=== PATIENT | female | born 1995 | race African-American/Black ===

== ENCOUNTER 2020-12-08 08:55 | Inpatient (IN) | payer OTHER ==
[2020-12-08] MEDS ORDERED: BUTORPHANOL TARTRATE 1 MG/ML VIAL IVPB PRN ×2 (10:10)
[2020-12-08] MEDS ORDERED: PROMETHAZINE HCL 25 MG/1 ML VIAL IVPB ONE (10:10)
[2020-12-08] MEDS ORDERED: CITRIC ACID/SODIUM CITRATE 30 ML UNIT-DOSE CUP PO ONE (10:10)
[2020-12-08] MEDS ORDERED: ELECTROLYTE-148 SOLN 1,000 ML IV SCH (10:15)
[2020-12-08 10:35] VITALS: BMI 26.8
[2020-12-08] MEDS ORDERED: DINOPROSTONE 10 MG VAGINAL SUPPOSITORY VG ONE (11:00)
[2020-12-08 11:39] LABS: BASO % 0.2 % (0-2.0); EOS % 0.4 % (0-4.5); HEMATOCRIT 36.3 % (32.4-45.2); HEMOGLOBIN 12.6 GM/dL (10.7-15.3); LYMPH % 21.6 % (8-40); MCH 29.4 pg (25.7-33.7); MCHC 34.6 g/dl (32.0-36.0); MEAN PLT VOLUME 9.8 fl (7.5-11.1); MONO % 9.2 % (3.8-10.2); NEUT % 68.6 % (42.8-82.8); PLATELET COUNT 204 10^3/uL (134-434); RBC 4.27 M/mm3 (3.60-5.2); RDW 14.5 % (11.6-15.6); WHITE BLOOD COUNT 10.5 K/mm3 (4.0-10.0)
[2020-12-08 11:45] LABS: INR 0.8 (0.83-1.09); PROTHROMBIN TIME (PATIENT) 9.8 SEC (9.7-13.0)
[2020-12-08 11:47] LABS: ACTIVATED PTT 24.6 SECONDS (25.2-36.5)
[2020-12-08 11:59] LABS: CALCIUM 9.4 mg/dL (8.5-10.1)
[2020-12-08 12:00] LABS: BLOOD UREA NITROGEN 8.4 mg/dL (7-18)
[2020-12-08 12:03] LABS: CREATININE 0.6 mg/dL (0.55-1.3)
[2020-12-08 12:52] LABS: URINE BARBITURATES NEGATIVE (NEGATIVE)
[2020-12-08 12:53] LABS: COCAINE, UR NEGATIVE (NEGATIVE); METHADONE, UR NEGATIVE (NEGATIVE); OPIATES, URI NEGATIVE (NEGATIVE); PHENCYCLIDINE,URINE NEGATIVE (NEGATIVE); URINE AMPHETAMINES NEGATIVE (NEGATIVE); URINE BENZODIAZEPINES NEGATIVE (NEGATIVE)
[2020-12-08] MEDS ORDERED: AMPICILLIN SODIUM 2 GM VIAL ONE (13:30)
[2020-12-08] MEDS ORDERED: AMPICILLIN - 2 GM in SODIUM CHLORIDE 100 ML IVPB ONE (13:30)
[2020-12-08] MEDS ORDERED: PROMETHAZINE HCL 25 MG/1 ML VIAL ONE (14:30)
[2020-12-08] MEDS ORDERED: BUTORPHANOL TARTRATE 2 MG/ML VIAL ONE (14:30)
[2020-12-08] MEDS ORDERED: AMPICILLIN SODIUM 1 GM VIAL ONE ×2 (17:00→20:45)
[2020-12-08] MEDS: AMPICILLIN - 1 GM in SODIUM CHLORIDE 100 ML IVPB SCH ×2 (17:30→21:51)
[2020-12-08] MEDS ORDERED: BUTORPHANOL TARTRATE 1 MG/ML VIAL ONE (20:40)
[2020-12-08] MEDS ORDERED: OXYTOCIN 30 UNITS in 0.9% NS 30 UNIT/500 ML INFUS.BAG IVPB SCH (21:15)
[2020-12-08] MEDS ORDERED: OXYTOCIN 30 UNITS in 0.9% NS 30 UNIT/500 ML INFUS.BAG IVPB ONE (21:22)
[2020-12-08] MEDS ORDERED: PCA PUMP NR ONE (22:56)
[2020-12-08] MEDS ORDERED: FENTANYL/BUPIVACAINE/NS/PF - PCEA - 50 ML DISP.SYRIN EP ONE (22:57)
[2020-12-08] MEDS ORDERED: BUPIVACAINE HCL/PF 0.25% (2.5MG/ML) 10 ML VIAL ONE (23:01)
[2020-12-08] MEDS ORDERED: NALOXONE HCL 0.4 MG/ML VIAL IVPUSH PRN (23:25)
[2020-12-08] MEDS ORDERED: FENTANYL/BUPIVACAINE/NS/PF - PCEA - 50 ML DISP.SYRIN EP SCH (23:30)
[2020-12-08] MEDS ORDERED: LIDOCAINE HCL 1% PRESERVATIVE FREE - 30ML VIAL ONE (23:45)
[2020-12-08] MEDS ORDERED: OXYTOCIN 20 UNITS in 0.9% NS 20 UNIT/1,000 ML INFUS.BAG IV ONE (23:46)
[2020-12-09] MEDS: AMPICILLIN - 1 GM in SODIUM CHLORIDE 100 ML IVPB SCH (01:48)
[2020-12-09] MEDS ORDERED: AMPICILLIN SODIUM 1 GM VIAL ONE (01:50)
[2020-12-09] MEDS ORDERED: PCA PUMP NR ONE (01:51)
[2020-12-09] MEDS ORDERED: METHYLERGONOVINE MALEATE 0.2 MG/1 ML AMP IM PRN (02:10)
[2020-12-09] MEDS ORDERED: BISACODYL 10 MG SUPP.RECT RC PRN (02:10)
[2020-12-09] MEDS ORDERED: WITCH HAZEL 50% (TUCKS) 40 PAD/JAR PAD TP PRN (02:10)
[2020-12-09] MEDS ORDERED: BENZOCAINE 20% 57 GM BOTTLE TP PRN (02:10)
[2020-12-09] MEDS ORDERED: BENZOCAINE 28 GM HEMORRHOIDAL OINTMENT TP PRN (02:10)
[2020-12-09] MEDS ORDERED: OXYTOCIN 20 UNITS in 0.9% NS 20 UNIT/1,000 ML INFUS.BAG IV SCH (02:15)
[2020-12-09 03:02] LABS: CORD BASE EXCESS -1.8 mmol/L (0-2); CORD HCO3 24.7 mmHg (20-29); CORD PCO2 48.3 mmHg (30-78); CORD pH 7.327 (7.14-7.44)
[2020-12-09] MEDS: IBUPROFEN 600 MG TABLET (FP) PO PRN (08:47)
[2020-12-09] MEDS: FERROUS SO4 325 MG TABLET (FP) PO SCH ×3 (08:51→17:51)
[2020-12-09] MEDS: PRENATAL VITAMINS W/ FOLIC ACID TABLET (FP) PO SCH (09:40)
[2020-12-10 07:15] LABS: BASO % 0.3 % (0-2.0); EOS % 0.7 % (0-4.5); HEMATOCRIT 34.4 % (32.4-45.2); HEMOGLOBIN 11.6 GM/dL (10.7-15.3); LYMPH % 23.6 % (8-40); MCH 29.1 pg (25.7-33.7); MCHC 33.6 g/dl (32.0-36.0); MEAN CELL VOLUME 86.7 fl (80-96); MEAN PLT VOLUME 9.4 fl (7.5-11.1); MONO % 7.6 % (3.8-10.2); NEUT % 67.8 % (42.8-82.8); PLATELET COUNT 170 10^3/uL (134-434); RBC 3.97 M/mm3 (3.60-5.2); RDW 14.4 % (11.6-15.6); WHITE BLOOD COUNT 12.9 K/mm3 (4.0-10.0)
[2020-12-10] MEDS: FERROUS SO4 325 MG TABLET (FP) PO SCH ×3 (08:34→17:09)
[2020-12-10] MEDS: PRENATAL VITAMINS W/ FOLIC ACID TABLET (FP) PO SCH (09:33)
[2020-12-10] MEDS: IBUPROFEN 600 MG TABLET (FP) PO PRN (09:33)
[2020-12-10] MEDS: ACETAMINOPHEN 325 MG TABLET (FP) PO PRN (20:49)
[2020-12-10] MEDS ORDERED: SENNOSIDES/DOCUSATE COMBO (SENNA PLUS) TABLET (UD) PO PRN (22:00)
[2020-12-11] MEDS: FERROUS SO4 325 MG TABLET (FP) PO SCH (08:53)
[2020-12-11] MEDS: IBUPROFEN 600 MG TABLET (FP) PO PRN (08:54)
[2020-12-11 08:59] VITALS: BP 122/85; PULSE 85; TEMP 98.4
[2020-12-11] MEDS: PRENATAL VITAMINS W/ FOLIC ACID TABLET (FP) PO SCH (09:00)
[2020-12-11] MEDS: ACETAMINOPHEN 325 MG TABLET (FP) PO PRN (10:26)
== END 2020-12-11 15:00 | disposition home or self-care (01) | DRG 560 ==
LOC: JDEL 08:55 → JLDR 10:00 → J3W 12-09 04:38
PROVIDERS: ADMIT Obstetrics & Gynecology; ATTEND Obstetrics & Gynecology
PROC: 3E0P7VZ Introduction of Hormone into Female Reproductive, Via Natural or Artificial Opening (ICD-10-PCS; principal; 2020-12-08)
PROC: 3E033VJ Introduction of Other Hormone into Peripheral Vein, Percutaneous Approach (ICD-10-PCS; 2020-12-08)
PROC: 10E0XZZ Delivery of Products of Conception, External Approach (ICD-10-PCS; 2020-12-09)
DX: O42.02 Full-term premature rupture of membranes, onset of labor within 24 hours of rupture (principal); O99.824 Streptococcus B carrier state complicating childbirth; O70.0 First degree perineal laceration during delivery; Z3A.39 39 weeks gestation of pregnancy; Z37.0 Single live birth
CPT/HCPCS: 36415; 36600; 59025; 59409; 80048; 80307; 82803; 85025; 85610; 85730; 86780; 86850; 86900; 86901; C9803; U0003; U0005

== ENCOUNTER 2021-02-05 17:57 | Emergency (ER) | payer OTHER ==
[2021-02-05 18:05] VITALS: BP 112/73; PULSE 78; TEMP 97; BMI 26.4
[2021-02-05] MEDS ORDERED: ACETAMINOPHEN 1000 MG/100 ML VIAL IVPB ONE (18:22)
[2021-02-05] MEDS ORDERED: ACETAMINOPHEN INJECTION 100 ML IVPB ONE (18:26)
[2021-02-05 19:10] LABS: BASO % 0.9 % (0-2.0); EOS % 1.3 % (0-4.5); HEMATOCRIT 39.7 % (32.4-45.2); HEMOGLOBIN 13.4 GM/dL (10.7-15.3); MCH 28.4 pg (25.7-33.7); MCHC 33.8 g/dl (32.0-36.0); MEAN CELL VOLUME 84.1 fl (80-96); MEAN PLT VOLUME 8.4 fl (7.5-11.1); MONO % 7.2 % (3.8-10.2); NEUT % 56.6 % (42.8-82.8); PLATELET COUNT 308 10^3/uL (134-434); RBC 4.72 M/mm3 (3.60-5.2); RDW 13.5 % (11.6-15.6); WHITE BLOOD COUNT 8.5 K/mm3 (4.0-10.0)
[2021-02-05 19:12] LABS: URINE APPEARANCE CLEAR; URINE BILIRUBIN NEGATIVE (NEGATIVE); URINE COLOR YELLOW; URINE GLUCOSE (UA) NEGATIVE (NEGATIVE); URINE KETONE NEGATIVE (NEGATIVE); URINE LEUK ESTERASE NEGATIVE (NEGATIVE); URINE NITRITE NEGATIVE (NEGATIVE); URINE PROTEIN NEGATIVE (NEGATIVE); URINE UROBILINOGEN 0.2 mg/dL (0.2-1.0)
[2021-02-05 19:31] LABS: CHLORIDE 103 mmol/L (98-107); SODIUM 137 mmol/L (136-145)
[2021-02-05 19:36] LABS: ALBUMIN 4.2 g/dl (3.4-5.0); ANION GAP 6 MMOL/L (8-16); BLOOD UREA NITROGEN 16.9 mg/dL (7-18); CALCIUM 9.8 mg/dL (8.5-10.1); CO2 28 mmol/L (21-32); GLUCOSE,RANDOM 95 mg/dL (74-106)
[2021-02-05 19:37] LABS: LIPASE 108 U/L (73-393)
[2021-02-05 19:39] LABS: CREATININE 0.8 mg/dL (0.55-1.3); SGOT/AST 16 U/L (15-37); SGPT/ALT 17 U/L (13-61)
[2021-02-05 19:41] LABS: BILIRUBIN,TOTAL 0.3 mg/dL (0.2-1); TOT PROT 8.2 g/dl (6.4-8.2)
[2021-02-05 19:42] LABS: ALK PHOS 111 U/L (45-117)
== END 2021-02-05 21:54 | disposition home or self-care (01) ==
LOC: JER 17:57
PROC: 3E033GC Introduction of Other Therapeutic Substance into Peripheral Vein, Percutaneous Approach (ICD-10-PCS; principal; 2021-02-05)
DX: R10.84 Generalized abdominal pain (principal); R07.9 Chest pain, unspecified
CPT/HCPCS: 36415; 71046-TC-FY; 76830-TC; 80053; 81003; 83690; 84484; 84703; 85025; 87086; 93005; 93010; 96374; 99285-25; J0131

== ENCOUNTER 2021-08-20 00:39 | Emergency (ER) | payer OTHER ==
[2021-08-20 01:17] VITALS: BP 110/74; PULSE 84; TEMP 98.4; BMI 24.5
== END 2021-08-20 02:48 | disposition home or self-care (01) ==
LOC: JER 00:39
DX: Z20.822 Contact with and (suspected) exposure to COVID-19 (principal)
CPT/HCPCS: 0241U-QW; 99283-25

== ENCOUNTER 2022-06-25 22:36 | Emergency (ER) | payer OTHER ==
[2022-06-25 22:50] VITALS: BP 114/81; PULSE 86; RESP 18; TEMP 97.6; BMI 23.0
[2022-06-26 01:16] LABS: PH,URINE 6.5 (5.0-8.0); URINE APPEARANCE CLEAR; URINE BILIRUBIN NEGATIVE (NEGATIVE); URINE COLOR YELLOW; URINE GLUCOSE (UA) NEGATIVE (NEGATIVE); URINE KETONE NEGATIVE (NEGATIVE); URINE LEUK ESTERASE NEGATIVE (NEGATIVE); URINE NITRITE NEGATIVE (NEGATIVE); URINE PROTEIN NEGATIVE (NEGATIVE); URINE UROBILINOGEN 0.2 mg/dL (0.2-1.0)
[2022-06-26 01:31] LABS: HCG,QUALITATIVE URINE NEGATIVE
[2022-06-26] MEDS ORDERED: ACETAMINOPHEN 500 MG TABLET (FP) PO ONE (01:49)
[2022-06-26] MEDS ORDERED: ONDANSETRON *ODT* 4 MG TABLET SL ONE (01:50)
[2022-06-26] MEDS ORDERED: ACETAMINOPHEN 325 MG TABLET (FP) ONE (02:21)
[2022-06-26] MEDS ORDERED: ONDANSETRON *ODT* 4 MG TABLET ONE (02:21)
== END 2022-06-26 02:28 | disposition home or self-care (01) ==
LOC: JER 22:36
DX: R10.32 Left lower quadrant pain (principal); R11.2 Nausea with vomiting, unspecified; N89.9 Noninflammatory disorder of vagina, unspecified
CPT/HCPCS: 36415; 76830-TC; 81003; 84703; 87086; 87491; 87591; 99284-25